=== PATIENT | female | born 1985 | race Caucasian/White ===

== ENCOUNTER 2017-01-20 20:43 | Emergency (ER) | payer OTHER ==
[~2017-01-20] VITALS: Ht 170.2 cm; Wt 111.6 kg
[~2017-01-20 20:43] MED LIST: CLOB15OI3 TP; CYCL-331 PO; DIAZ5TAB PO; HYDR-79 PO; HYDR-971 PO; HYDR15SO4 PO; HYDR453.3 TP; IBUP800T19 PO; KETO120S5 TP
[2017-01-20 21:10] VITALS: BP 142/68
--- NOTE | 2017-01-20 21:12 | ED.ADGEN ---
Past History Past Medical History: GERD Past Surgical History: No Surgical History Smoking: Cigarettes Alcohol Use: None Drug Use: None Adult General Chief Complaint Chief Complaint back pain HPI HPI Patient is a 31 y/o female that has been doing lots of gardening. now her right lumbar area is hurting radiating to RLE. no falls. no difficulty with bowel or bladder habits. no weakness, no numbness Review of Systems Review of Systems Constitutional: Denies fever or chills [] Eyes: Denies change in visual acuity, redness, or eye pain [] HENT: Denies nasal congestion or sore throat [] Respiratory: Denies cough or shortness of breath [] Cardiovascular: No additional information not addressed in HPI [] GI: Denies abdominal pain, nausea, vomiting, bloody stools or diarrhea [] : Denies dysuria or hematuria [] Musculoskeletal: back pain, no joint pain. rle pain Integument: Denies rash or skin lesions [] Neurologic: Denies headache, focal weakness or sensory changes [] Endocrine: Denies polyuria or polydipsia [] Allergies Allergies Allergies Coded Allergies Type Severity Reaction Last Updated Verified Sulfa (Sulfonamide Antibiotics) Allergy Intermediate Rash 01/27/14 Yes Physical Exam Physical Exam Constitutional: Well developed, well nourished, no acute distress, non-toxic appearance. [] HENT: Normocephalic, atraumatic, bilateral external ears normal, oropharynx moist, no oral exudates, nose normal. [] Eyes: PERRLA, EOMI, conjunctiva normal, no discharge. [] Neck: Normal range of motion, no tenderness, supple, no stridor. [] Cardiovascular:Heart rate regular rhythm, no murmur [] Lungs & Thorax: Bilateral breath sounds clear to auscultation [] Abdomen: Bowel sounds normal, soft, no tenderness, no masses, no pulsatile masses. [] Skin: Warm, dry, no erythema, no rash. [] Back:tender to palpate right paraspinous muscle of lumbar spine. tender into right buttock with radiation along lateral aspect of thigh Extremities: No tenderness, no cyanosis, no clubbing, ROM intact, no edema. nml reflexes, normal strength. pain with straight leg at 40degress Neurologic: Alert and oriented X 3, normal motor function, normal sensory function, no focal deficits noted. [] Psychologic: Affect normal, judgement normal, mood normal. [] Current Patient Data Vital Signs Vital Signs Date Time Temp Pulse Resp B/P (MAP) Pulse Ox O2 Delivery O2 Flow Rate FiO2 01/20/17 20:43 98.1 86 18 98 Room Air Lab Results Laboratory Tests Test 01/20/17 21:05 POC Urine HCG, Qualitative hcg negative (Negative) EKG EKG [] Radiology/Procedures Radiology/Procedures [] Course & Med Decision Making Course & Med Decision Making Pertinent Labs and Imaging studies reviewed. (See chart for details) pt will return if weakness, numbness, trouble with bowel or bladder. we discussed f/u with pcp to discuss rehab vs pain mgmt vs surgical referral Final Impression Final Impression back pain with radiculopathy[] Problems: Dragon Disclaimer Dragon Disclaimer This electronic medical record was generated, in whole or in part, using a voice recognition dictation system. Departure Time of Disposition: 21:14 Disposition: 01 HOME, SELF-CARE Condition: STABLE Patient Instructions: Back Pain, Adult DARNELL VELAZQUEZ MD Jan 20, 2017 21:11
== END 2017-01-20 21:15 | disposition home or self-care (01) ==
LOC: ER 20:43
DX: M54.16 Radiculopathy, lumbar region (principal); K21.9 Gastro-esophageal reflux disease without esophagitis; F17.210 Nicotine dependence, cigarettes, uncomplicated; Z88.2 Allergy status to sulfonamides
CPT/HCPCS: 81025; 99282

== ENCOUNTER 2017-04-27 18:18 | Emergency (ER) | payer OTHER ==
[~2017-04-27] VITALS: Ht 170.2 cm; Wt 100.0 kg
--- NOTE | 2017-04-27 18:26 | PHYS DOC ---
Past History Past Medical History: GERD Past Surgical History: No Surgical History Smoking: Cigarettes Alcohol Use: None Drug Use: None Adult General Chief Complaint Chief Complaint: sore throat HPI HPI He is a pleasant 31-year-old female otherwise healthy presents with a sore throat for last 2 days. Patient is on a nonproductive cough, runny nose and sick contacts home with similar symptoms. She denies any fevers, chills, change in voice, neck stiffness or swelling. Patient denies any travel outside the country or recent anabiotic use. Review of Systems Review of Systems Constitutional: Denies fever or chills [] Eyes: Denies change in visual acuity, redness, or eye pain [] HENT: Denies nasal congestion but she does complains of sore throat Respiratory: Denies cough or shortness of breath [] Cardiovascular: No additional information not addressed in HPI [] GI: Denies abdominal pain, nausea, vomiting, bloody stools or diarrhea [] : Denies dysuria or hematuria [] Musculoskeletal: Denies back pain or joint pain [] Integument: Denies rash or skin lesions [] Neurologic: Denies headache, focal weakness or sensory changes [] Endocrine: Denies polyuria or polydipsia [] Allergies Allergies Allergies Coded Allergies Type Severity Reaction Last Updated Verified Sulfa (Sulfonamide Antibiotics) Allergy Intermediate Rash 01/27/14 Yes Physical Exam Physical Exam Constitutional: Well developed, well nourished, no acute distress, non-toxic appearance. [] HENT: Normocephalic, atraumatic, bilateral external ears normal, oropharynx moist, no oral exudates, no tonsillar hypertrophy nose normal like clear rhinorrhea noted. [] Neck: Normal range of motion, no tenderness, supple, no stridor. [] Cardiovascular:Heart rate regular rhythm, no murmur [] Lungs & Thorax: Bilateral breath sounds clear to auscultation [] Neurologic: Alert and oriented X 3, normal speech EKG EKG [] Radiology/Procedures Radiology/Procedures [] Course & Med Decision Making Course & Med Decision Making Pertinent Labs and Imaging studies reviewed. (See chart for details) patient rapid strep is negative. By centor criteria she does not meet necessary requirements for empiric treatment she'll get supportive medications and oral Decadron. Is no evidence of peritonsillar abscess, retropharyngeal abscess, or other oropharynx infection, this is likely an upper respiratory tract infection. [] Dragon Disclaimer Dragon Disclaimer This chart was dictated in whole or in part using Voice Recognition software in a busy, high-work load, and often noisy Emergency Department environment. It may contain unintended and wholly unrecognized errors or omissions. Departure Departure: Impression: Primary Impression: Sore throat Disposition: 01 HOME, SELF-CARE Condition: IMPROVED Referrals: KAYLIN CONTRERAS (PCP) Patient Instructions: Sore Throat Additional Instructions: My discharge plan Follow up: In addition patient is asked to followup with their primary doctor, within a week for followup examination and to address patient's ongoing medical conditions. Because patient does not have a regular medical doctor, a local physician Resource Sheet will be provided to establish care primary care. Patient is advised that in the Emergency Department primary complaints are addressed and only in light of known signs and symptoms. Patient should return immediately to the emergency department if new signs and symptoms develop or patient's condition worsens in any way. At time of discharge patient was in stable condition and had verbalized understanding of the discharge instructions. Scripts Diphenhydramine Hcl (BENADRYL) 25 Mg Capsule 1 MG PO QID for 7 Days, CAP Prov: WHITNEY MCKINNON MD 04/27/17 Guaifenesin/Dextromethorphan (MUCINEX DM ER 1,200-60 MG TAB) 1 Each Tbmp.12hr 1 TAB PO BID, #20 TAB 1 Refill Prov: WHITNEY MCKINNON MD 04/27/17 WHITNEY MCKINNON MD Apr 27, 2017 18:26
[2017-04-27] MEDS ORDERED: GUAI1TBM10 PO (18:50)
[2017-04-27] MEDS ORDERED: DIPH25CA58 PO (18:50)
[2017-04-27] MEDS ORDERED: DEXAMETHASONE SOD PHOS 10 MG/ML VIAL PO ONE (19:00)
[2017-04-27 19:36] VITALS: BP 136/57
== END 2017-04-27 19:30 | disposition home or self-care (01) ==
LOC: ER 18:18
DX: J02.9 Acute pharyngitis, unspecified (principal); K21.9 Gastro-esophageal reflux disease without esophagitis; F17.210 Nicotine dependence, cigarettes, uncomplicated; Z88.2 Allergy status to sulfonamides
CPT/HCPCS: 87070; 87880; 99284; J1100

== ENCOUNTER 2017-05-05 18:32 | Emergency (ER) | payer OTHER ==
[~2017-05-05] VITALS: Ht 170.2 cm; Wt 100.0 kg
[~2017-05-05 18:32] MED LIST changes: +DIPH25CA58 PO; +GUAI1TBM10 PO
[2017-05-05] MEDS: METOCLOPRAMIDE HCL 10 MG/2 ML VIAL. IV ONE (18:45)
[2017-05-05] MEDS: IV NORMAL SALINE 1,000ML 1,000 ML IV ONE (18:45)
[2017-05-05] MEDS: diphenhydrAMINE 50 MG/ML VIAL IVP ONE (18:45)
[2017-05-05 18:50] VITALS: BP 142/81
--- NOTE | 2017-05-05 19:32 | PHYS DOC ---
Past History Past Medical History: Migraines Past Surgical History: No Surgical History Smoking: Cigarettes Alcohol Use: None Drug Use: None Adult General Chief Complaint Chief Complaint: HEADACHE HPI HPI 31-year-old female with a headache similar to previous headaches. She denies being . It is a mild nonradiating intermittent headache. It is not sudden in onset. She denies any numbness weakness tingling or vision changes. Review of systems is negative for chest pain shortness of breath abdominal pain. All other review of systems is negative unless otherwise noted in history of present illness. ED course: 31-year-old female with a migraine similar to previous. Patient given Reglan and Benadryl and IV fluids which improved her symptoms. Unfortunately the patient was unable to find a ride home. We asked the patient not drive home given the medications administered here in the emergency room. The patient left her keys to be picked up later tomorrow. Review of Systems Review of Systems SEE ABOVE Current Medications Current Medications Current Medications Medications (Trade) Dose Ordered Sig/Chuckie Start Time Stop Time Status Last Admin Dose Admin Diphenhydramine HCl (Benadryl) 25 mg 1X ONCE 05/05/17 18:45 05/05/17 18:48 DC 05/05/17 18:45 25 MG Metoclopramide HCl (Reglan) 10 mg 1X ONCE 05/05/17 18:45 05/05/17 18:48 DC 05/05/17 18:45 10 MG Sodium Chloride 1,000 ml @ 1,000 mls/hr 1X ONCE 05/05/17 18:45 05/05/17 19:44 05/05/17 18:45 1,000 MLS/HR Allergies Allergies Allergies Coded Allergies Type Severity Reaction Last Updated Verified Sulfa (Sulfonamide Antibiotics) Allergy Intermediate Rash 01/27/14 Yes Physical Exam Physical Exam Constitutional: Well developed, well nourished, no acute distress, non-toxic appearance. [] HENT: Normocephalic, atraumatic, bilateral external ears normal, oropharynx moist, no oral exudates, nose normal. [] Eyes: PERRLA, EOMI, conjunctiva normal, no discharge. [] Neck: Normal range of motion, no tenderness, supple, no stridor. [] Cardiovascular:Heart rate regular rhythm, no murmur [] Lungs & Thorax: Bilateral breath sounds clear to auscultation [] Abdomen: Bowel sounds normal, soft, no tenderness, no masses, no pulsatile masses. [] Skin: Warm, dry, no erythema, no rash. [] Back: No tenderness, no CVA tenderness. [] Extremities: No tenderness, no cyanosis, no clubbing, ROM intact, no edema. [] Neurologic: Mental status: Awake oriented and alert x3 Cranial nerves: Extraocular movements intact, eyebrows brittany bilaterally smile symmetric, uvula elevation, shoulder shrug intact, tongue protrusion normal DTRs: 2+ Sensation: equal and normal in all extremities Strength: 5/5 in upper and lower extremities bilaterally Psychologic: Affect normal, judgement normal, mood normal. [] Current Patient Data Vital Signs Vital Signs Date Time Temp Pulse Resp B/P (MAP) Pulse Ox O2 Delivery O2 Flow Rate FiO2 05/05/17 18:50 98.2 84 20 97 Room Air EKG EKG [] Radiology/Procedures Radiology/Procedures [] Course & Med Decision Making Course & Med Decision Making Pertinent Labs and Imaging studies reviewed. (See chart for details) [] Dragon Disclaimer Dragon Disclaimer This chart was dictated in whole or in part using Voice Recognition software in a busy, high-work load, and often noisy Emergency Department environment. It may contain unintended and wholly unrecognized errors or omissions. Departure Departure: Impression: Primary Impression: Migraine Disposition: 01 HOME, SELF-CARE Condition: STABLE Referrals: KAYLIN CONTRERAS (PCP) Patient Instructions: Migraine Headache Additional Instructions: Thank you for allowing us to participate in your care today. Followup with your primary care physician in 3 days if your symptoms do not improve. Call your Primary Doctor tomorrow and inform them of your visit today. If you do not have a primary care provider you can ask for a list of our primary care providers. Return to the emergency department you have any new or concerning findings. I recommend you follow-up with your doctor for chronic migraine medications. This should be evaluated by the primary care physician and any necessary consulting services for continued management within a few days after discharge. Return to emergency room if you have any new or concerning symptoms including but not limited to fever, chills, nausea, vomiting, intractable pain, any new rashes, chest pain, shortness of air, uncontrolled bleeding, difficulty breathing, and/or vision loss. HAILY PERSAUD MD May 05, 2017 19:32
[2017-05-05 19:48] LABS: U PREG PATIENT NEGATIVE (NEG)
== END 2017-05-05 20:00 | disposition home or self-care (01) ==
LOC: ER 18:32
DX: G43.909 Migraine, unspecified, not intractable, without status migrainosus (principal); F17.210 Nicotine dependence, cigarettes, uncomplicated; Z88.2 Allergy status to sulfonamides
CPT/HCPCS: 81025; 96361; 96374; 96375; J1200; J2765; 99284-25; J7030

== ENCOUNTER 2017-08-03 01:06 | Emergency (ER) | payer OTHER ==
[~2017-08-03] VITALS: Ht 170.2 cm; Wt 100.0 kg
[2017-08-03 01:21] VITALS: BP 151/102
[2017-08-03] MEDS ORDERED: OXYC-327 PO (01:51)
[2017-08-03] MEDS ORDERED: CLIN300C8 PO (01:51)
--- NOTE | 2017-08-03 01:54 | PHYS DOC ---
General Chief Complaint: TOOTH ACHE OR PAIN Stated Complaint: DENTAL PAIN X 3 DAYS Time Seen by MD: 01:11 Source: patient Exam Limitations: no limitations Problems: History of Present Illness Initial Comments Patient is a 32-year-old female who comes to the ED complaining of dental pain. Patient states that she developed severe cavities while years ago. She states she's had chronic issues with her teeth and that she has just found a dentist who will accept her insurance and plans to follow-up with them. She complains of severe dental pain primarily on the left upper row, she cannot localize it as nearly all of her teeth are severely decayed. She denies any headache or facial pain no fever chills or body aches no nausea or vomiting. Wxcf-duw-khtvmpm medications are not helping, she says she smoked cigarettes immediately prior to coming. She is afebrile on arrival heart rate 108 bpm and complaining of severe pain worse with eating and not relieved with current medications. Timing/Duration: gradual, other Severity: severe Location: dental Prearrival Treatment: over the counter meds, prescription meds Modifying Factors: improves with other Associated Symptoms: tooth pain Allergies: Coded Allergies: Sulfa (Sulfonamide Antibiotics) (Verified Allergy, Intermediate, Rash, ) Past Medical History Medical History: migraines Surgical History: noncontributory Social History Smoker: cigarettes Alcohol: none Drugs: none Constitutional: denies chills, denies diaphoresis, denies fever, denies malaise Eyes: denies blindness, denies foreign body sensation Ears: denies dizziness, denies pain Nose: denies congestion, denies epistaxis Mouth: see HPI Throat: denies pain, denies swelling, denies neck stiffness, denies difficulty with fluids Respiratory: denies cough, denies shortness of breath Cardiovascular: denies chest pain, denies palpitations Neurological: denies headache, denies numbness, denies paresthesia Physical Exam General Appearance: no apparent distress, obese Eyes: bilateral eye normal inspection, bilateral eye PERRL, bilateral eye EOMI Nose: normal inspection Mouth/Throat: other (severe global dental caries with many teeth eroded to the gumline, no purulence no gum swelling no bony tenderness) Neck: non-tender, supple (tender reactive lymphadenopathy bilaterally) Cardiovascular/Respiratory: normal peripheral pulses, no respiratory distress Neurologic/Psychiatric: gaggerman II-XII nml as tested, alert, oriented x 3 Orders, Labs, Meds Given the extent of her tooth decay I did offer CT evaluation and blood work. The patient states that typically antibiotics and pain medications help. I discussed signs and symptoms to monitor as well as indications for urgent return to the department. I discussed ofkz-jyb-felvuey prescription medications as well as oral hydration. Recommended smoking cessation patient expressed agreement and understanding of the treatment plan. Departure Time of Disposition: 01:51 Disposition: HOME, SELF-CARE Diagnosis: severe dental caries Condition: STABLE Patient Instructions: Dental Caries Additional Instructions: Listerine gargles 3 times daily after brushing and flossing. Aggressive hydration with Gatorade and water. Stop smoking seek medical assistance if necessary. Kyqg-zjc-cytdbjk ibuprofen for baseline discomfort. Prescription: Clindamycin, Percocet 7.5 mg quantity 20 Take joss-fqj-saieudq stool softeners and increase fluids to avoid constipation. ED staff will provide whatever literature we have regarding [facility], [facility], and [facility]. Use the resources as needed but schedule a next available dental evaluation on Saturday. Return to ED with new or changing symptoms. CARINE LUNA DO Aug 03, 2017 01:54
[2017-08-03] MEDS ORDERED: MORPHINE SULFATE 10 MG/ML SYRINGE. IM ONE (02:00)
[2017-08-03] MEDS ORDERED: CLINDAMYCIN HCL 150 MG CAPSULE PO ONE (02:00)
[2017-08-04] MEDS ORDERED: PRED20TA PO (21:43)
== END 2017-08-03 02:01 | disposition home or self-care (01) ==
LOC: ER 01:06
DX: K02.9 Dental caries, unspecified (principal); G43.909 Migraine, unspecified, not intractable, without status migrainosus; F17.210 Nicotine dependence, cigarettes, uncomplicated; Z88.2 Allergy status to sulfonamides
CPT/HCPCS: 96372; 99283; J2270

== ENCOUNTER 2017-08-04 19:04 | Emergency (ER) | payer OTHER ==
[~2017-08-04] VITALS: Ht 170.2 cm; Wt 100.0 kg
[~2017-08-04 19:04] MED LIST changes: +CLIN300C8 PO; +OXYC-327 PO
[2017-08-04 19:14] VITALS: BP 148/96
[2017-08-04] MEDS ORDERED: IV NORMAL SALINE 1,000ML 1,000 ML IV SCH (19:16)
[2017-08-04] MEDS ORDERED: PIP/TAZO PER PHARMACY MC PRN (19:30)
[2017-08-04] MEDS ORDERED: methylPREDNISolone SOD SUCC PF 125 MG/2 ML VIAL. IV ONE (20:00)
[2017-08-04] MEDS ORDERED: PIPERACILLIN/TAZOBACTAM 3.375 GM in IV NORMAL SALINE 50ML 50 ML IV ONE (20:00)
[2017-08-04 20:03] LABS: BASO # 0.1 x10^3/uL (0.0-0.2); BASO % 1 % (0-3); EOS # 0.1 x10^3/uL (0.0-0.7); EOS % 1 % (0-3); HEMATOCRIT 43.9 % (36.0-47.0); HEMOGLOBIN 15.3 g/dL (12.0-15.5); LYMPH # 2.8 x10^3/uL (1.0-4.8); LYMPH % 28 % (24-48); MEAN CORPUSCULAR HEMOGLOBIN 32 pg (25-35); MEAN CORPUSCULAR HGB CONC 35 g/dL (31-37); MEAN CORPUSCULAR VOLUME 90 fL (79-100); MONO # 0.9 x10^3/uL (0.0-1.1); MONO % 9 % (0-9); NEUT % 60 % (31-73); PLATELET COUNT 255 x10^3/uL (140-400); RED BLOOD COUNT 4.87 x10^6/uL (3.50-5.40); RED CELL DISTRIBUTION WIDTH 13.2 % (11.5-14.5)
[2017-08-04 20:06] LABS: BILIRUBIN,URINE NEG (NEG); CLARITY,URINE HAZY; COLOR,URINE AMBER; GLUCOSE,URINE 500 mg/dL (NEG)
[2017-08-04 20:07] LABS: AMORPHOUS SEDIMENT,UR PRESENT /HPF; BACTERIA,URINE 0 /HPF (0-FEW); NITRITE,URINE NEG (NEG); RBC,URINE OCC /HPF (0-2); SQUAMOUS EPITHELIAL CELL,UR MOD /LPF; UROBILINOGEN,URINE 0.2 mg/dL (0.2 mg/dL); WBC,URINE OCC /HPF (0-4)
[2017-08-04] MEDS ORDERED: IV NORMAL SALINE 50ML 50 ML ONE (20:10)
[2017-08-04] MEDS ORDERED: PIPERACILLIN/TAZOBACTAM 3.375 GM VIAL IV ONE (20:10)
[2017-08-04] MEDS ORDERED: CONTRAST GIVEN MC PRN (20:15)
[2017-08-04 20:20] LABS: ALBUMIN 3.8 g/dL (3.4-5.0); ALBUMIN/GLOBULIN RATIO 0.8 (1.0-1.7); C REACTIVE PROTEIN 155.2 mg/L (0-3.3); CALCIUM 9.3 mg/dL (8.5-10.1); CREATININE 0.6 mg/dL (0.6-1.0); GFR 115.9; POTASSIUM 3.8 mmol/L (3.5-5.1); TOTAL BILIRUBIN 0.6 mg/dL (0.2-1.0); TOTAL PROTEIN 8.5 g/dL (6.4-8.2)
[2017-08-04] MEDS ORDERED: IOHEXOL 300 MG/ML 75 ML VIAL. IV ONE (20:30)
--- NOTE | 2017-08-04 21:20 | RAD ---
PQRS Compliance Statement: One or more of the following individualized dose reduction techniques were utilized for this examination: 1. Automated exposure control 2. Adjustment of the mA and/or kV according to patient size 3. Use of iterative reconstruction technique CT MAXILLOFACIAL W/CONTRAST Clinical Indication: Severe dental caries, Left side facial pain and swelling. Comparison: None. TECHNIQUE: Helical CT imaging of the facial bones is performed after 75 cc of Omnipaque 300 IV contrast. Findings: There are dental cavities on the left involving an upper molar, 2 upper premolars, a lower premolar, and lower canine. There is left periodontal fluid collection that is incompletely formed measuring 2.8 cm AP by 1.5 cm transverse. There is probably dental cavity of an upper right molar. There is periodontal fluid collection that is poorly formed on the right measuring about 2.3 cm AP by 1.3 cm transverse. Both fluid collections are near the floor of the mouth and can be seen on image 14. There are bilateral mildly enlarged upper cervical lymph nodes that are probably reactive. There is left preorbital subcutaneous induration and swelling mild induration of the upper left cheek. Visualized brain without midline shift or mass effect. Globes are intact. Mild mucosal thickening inferiorly in the left maxillary sinus. No air-fluid level. Left ostiomeatal complex is partially opacified. IMPRESSION: 1. Left greater than right dental cavities as detailed above. 2. There are bilateral periodontal incompletely formed fluid collections suggestive of phlegmon or early abscess. 3. There is probably reactive upper cervical adenopathy. 4. Left preorbital subcutaneous induration. Correlate with physical exam. Electronically signed by: Duy Blum MD (08/04/2017 9:17 PM) [facility]
[2017-08-04 21:31] LABS: AMPHETAMINE/METHAMPHETAMINE NEG (NEG); BARBITURATES NEG (NEG); BENZODIAZEPINES NEG (NEG); CANNABINOIDS NEG (NEG); COCAINE NEG (NEG); METHADONE NEG (NEG); OPIATES POS (NEG); PHENCYCLIDINE NEG (NEG)
--- NOTE | 2017-08-04 21:41 | PHYS DOC ---
General Chief Complaint: DENTAL PROBLEM Stated Complaint: DENTAL PAIN Time Seen by MD: 19:12 Source: patient, old records Exam Limitations: no limitations Problems: History of Present Illness Initial Comments Patient is a 32-year-old female who comes to the ED complaining of worsening dental pain symptoms. Patient was seen by me 2 days ago with severe dental caries and chronic dental issues, she states that they have been ongoing for several years. She reports that they have worsened recently however has not sought any dental evaluation or treatment. 2 days ago when I saw her she was prescribed clindamycin and opiate pain medications, she reports some delay in obtaining those prescriptions. She was advised to return if her symptoms worsened and today has some mild left-sided facial swelling. Her pain complaints are stable described as moderate severe, throbbing left upper jaw. No fever chills nausea vomiting no headache neck stiffness or actual bony tenderness. On arrival she is afebrile and tachycardic however given the severity of her dental caries and with progression of symptoms despite antibacterial treatment we will rule out sepsis and osteomyelitis. The patient is agreeable to CT and lab evaluation. Patient continues to smoke cigarettes. No trouble swallowing or difficulty breathing associated with the facial swelling. Timing/Duration: other Severity: severe Location: facial, dental Prearrival Treatment: no prearrival treatment, over the counter meds Modifying Factors: improves with other Associated Symptoms: facial pain/swelling, tooth pain Allergies: Coded Allergies: Sulfa (Sulfonamide Antibiotics) (Verified Allergy, Intermediate, Rash, ) Past Medical History Medical History: other (migraines, severe dental caries, noncompliance with no dental follow-up from prior ED visits) Surgical History: noncontributory Social History Smoker: cigarettes Alcohol: none Drugs: none Constitutional: denies chills, denies diaphoresis, denies fever, denies malaise Eyes: denies blindness, denies blurred vision Ears: denies dizziness, denies pain Nose: denies clots, denies congestion, denies epistaxis Mouth: clots Throat: denies pain, denies swelling, denies neck stiffness Respiratory: denies cough, denies shortness of breath, denies wheezing Cardiovascular: denies chest pain, denies palpitations, denies syncope Gastrointestinal: denies abdominal pain, denies nausea, denies vomiting Musculoskeletal: denies back pain, denies joint swelling, denies neck pain Neurological: denies headache, denies numbness, denies paresthesia Physical Exam General Appearance: moderate distress, obese Eyes: bilateral eye normal inspection, bilateral eye PERRL, bilateral eye EOMI Ears: bilateral ear auricle normal, bilateral ear canal normal, bilateral ear TM normal Nose: normal inspection Mouth/Throat: other (mild left-sided facial swelling, persistent severe primarily left upper dental caries with some mild gingival swelling no palpable bony deformity no bony tenderness or purulence) Neck: full range of motion, supple, lymphadenopathy (L) Cardiovascular/Respiratory: normal peripheral pulses, normal breath sounds 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 PHYSICIAN: CARINE LUNA DO REASON: severe dental caries, L facial swelling PROCEDURE: CT MAXILLOFACIAL W/CONTRAST PQRS Compliance Statement: One or more of the following individualized dose reduction techniques were utilized for this examination: 1. Automated exposure control 2. Adjustment of the mA and/or kV according to patient size 3. Use of iterative reconstruction technique CT MAXILLOFACIAL W/CONTRAST Clinical Indication: Severe dental caries, Left side facial pain and swelling. Comparison: None. TECHNIQUE: Helical CT imaging of the facial bones is performed after 75 cc of Omnipaque 300 IV contrast. Findings: There are dental cavities on the left involving an upper molar, 2 upper premolars, a lower premolar, and lower canine. There is left periodontal fluid collection that is incompletely formed measuring 2.8 cm AP by 1.5 cm transverse. There is probably dental cavity of an upper right molar. There is periodontal fluid collection that is poorly formed on the right measuring about 2.3 cm AP by 1.3 cm transverse. Both fluid collections are near the floor of the mouth and can be seen on image 14. There are bilateral mildly enlarged upper cervical lymph nodes that are probably reactive. There is left preorbital subcutaneous induration and swelling mild induration of the upper left cheek. Visualized brain without midline shift or mass effect. Globes are intact. Mild mucosal thickening inferiorly in the left maxillary sinus. No air-fluid level. Left ostiomeatal complex is partially opacified. IMPRESSION: 1. Left greater than right dental cavities as detailed above. 2. There are bilateral periodontal incompletely formed fluid collections suggestive of phlegmon or early abscess. 3. There is probably reactive upper cervical adenopathy. 4. Left preorbital subcutaneous induration. Correlate with physical exam. Electronically signed by: Duy Blum MD (08/04/2017 9:17 PM) [facility] DICTATED AND SIGNED BY: DUY BLUM MD DATE: 08/04/172106 CC: KAYLIN CONTRERAS; CARINE LUNA DO ~ CBC is normal, sodium 133, CRP is 155.2 2138: I rechecked the patient she reports that she's feeling much better. She says her facial swelling has resolved and is pain free with the Solu-Medrol. I discussed lab and imaging findings, no emergent indication to hospitalize the patient over [place] at this time per her request and my observation. I discussed signs and symptoms to monitor as well as indications for urgent return to the department. Discussed aggressive hydration dztc-[id number] prescription medications and the absolute necessity for immediate dental evaluation. I discussed smoking cessation her questions were answered to her satisfaction and she expressed agreement and understanding of treatment plan. Departure Time of Disposition: 21:40 Disposition: 01 HOME, SELF-CARE Diagnosis: Severe dental caries with facial cellulitis Condition: IMPROVED Patient Instructions: Dental Caries Additional Instructions: Listerine gargles 3 times daily after brushing and flossing. Aggressive hydration with Gatorade and water. Stop smoking seek medical assistance if necessary. Cnvf-nfq-xndbjfo ibuprofen for baseline discomfort. Continue current meds. Prescription: Prednisone Take mkeq-atl-tllsgeg stool softeners and increase fluids to avoid constipation. ED staff will provide whatever literature we have [facility], [facility] dental [facility], and [facility]. Use the resources as needed but schedule a next available dental evaluation on Saturday. Return to ED with new or changing symptoms. CARINE LUNA DO Aug 04, 2017 21:40
[2017-08-04] MEDS ORDERED: PRED20TA PO (21:43)
[2017-08-04] MEDS ORDERED: predniSONE 20 MG TABLET PO ONE (22:00)
== END 2017-08-04 21:56 | disposition home or self-care (01) ==
LOC: ER 19:04
DX: K02.9 Dental caries, unspecified (principal); L03.211 Cellulitis of face; G43.909 Migraine, unspecified, not intractable, without status migrainosus; Z91.14 Patient's other noncompliance with medication regimen; F17.210 Nicotine dependence, cigarettes, uncomplicated; Z88.2 Allergy status to sulfonamides
CPT/HCPCS: 36415; 70487; 80053; 80307; 81001; 81025; 82550; 83605; 85025; 86140; 87040; 96365; 96366; 96375; 99285; J2543; J2930; J7512; Q9967; G0479; J7030

== ENCOUNTER 2020-07-01 17:43 | Emergency (ER) | payer OTHER ==
[~2020-07-01] VITALS: Ht 167.6 cm; Wt 87.7 kg
[~2020-07-01 17:43] MED LIST changes: +HYDR-1179 PO; +HYDR-3165 PO; -HYDR-79 PO; -HYDR-971 PO; -HYDR15SO4 PO; +HYDR15SO6 PO; -OXYC-327 PO; +OXYC1TAB19 PO; +PRED20TA PO
[2020-07-01 17:55] VITALS: BP 146/99
[2020-07-01 18:39] LABS: BASO % 0 % (0-3); EOS % 0 % (0-3); HEMATOCRIT 45.9 % (36.0-47.0); HEMOGLOBIN 15.5 g/dL (12.0-15.5); LYMPH # 2.6 x10^3/uL (1.0-4.8); LYMPH % 28 % (24-48); MEAN CORPUSCULAR HEMOGLOBIN 31 pg (25-35); MEAN CORPUSCULAR HGB CONC 34 g/dL (31-37); MEAN CORPUSCULAR VOLUME 92 fL (79-100); MONO # 0.4 x10^3/uL (0.0-1.1); MONO % 5 % (0-9); NEUT # 6.5 x10^3uL (1.8-7.7); NEUT % 67 % (31-73); PLATELET COUNT 273 x10^3/uL (140-400); RED BLOOD COUNT 5.02 x10^6/uL (3.50-5.40); RED CELL DISTRIBUTION WIDTH 13.8 % (11.5-14.5); WHITE BLOOD COUNT 9.6 x10^3/uL (4.0-11.0)
--- NOTE | 2020-07-01 18:55 | PHYS DOC ---
Past History Past Medical History: Diabetes, Migraines (INES LLOYD APRN) Past Surgical History: No Surgical History (INES LLOYD APRN) Smoking: Cigarettes Alcohol Use: None Drug Use: None (INES LLOYD APRN) General Adult EDM: Chief Complaint: VAGINAL BLEEDING HPI: HPI: Patient is a 35-year-old female who presents to the emergency department today with complaints of vaginal spotting that began today. Patient states earlier this week she was seen at a clinic and diagnosed with . She reports her last menstrual cycle was on May 202019. She is unsure when her due date is. Patient is 2, para 1, she has not established care yet. Patient denies any abdominal pain, nausea, vomiting, diarrhea, dysuria, hematuria, difficulty voiding, fever, cough, or shortness of breath. She denies any irregular vaginal discharge prior to the onset of the bleeding, or any irregular vaginal odor. She states she has some low back pain but that is chronic and she denies any change in her pain. Patient reports that she has had some increased urinary frequency but denies urgency. She currently denies any pain. (INES LLOYD APRN) Review of Systems: Review of Systems: Complete ROS is negative unless otherwise noted in HPI. (INES LLOYD APRN) Allergies: Allergies: Allergies Coded Allergies Type Severity Reaction Last Updated Verified Sulfa (Sulfonamide Antibiotics) Allergy Intermediate Rash 01/27/14 Yes (INES LLOYD APRN) Physical Exam: PE: See Above Constitutional: Well developed, well nourished, no acute distress, non-toxic appearance. [] HENT: Normocephalic, atraumatic, bilateral external ears normal, nose normal. [] Eyes: PERRLA, EOMI, conjunctiva normal, no discharge. [] Neck: Normal range of motion, no stridor. [] Cardiovascular:Heart rate regular rhythm Lungs & Thorax: Respirations even and unlabored, no retractions, no respiratory distress Abdomen: soft, no tenderness Skin: Warm, dry, no erythema, no rash. [] Extremities: No cyanosis, ROM intact, no edema. [] Neurologic: Alert and oriented X 3, no focal deficits noted. [] Psychologic: Affect normal, judgement normal, mood normal. [] (INES LLOYD APRN) Current Patient Data: Labs: Laboratory Tests Test 07/01/20 18:20 07/01/20 18:29 White Blood Count 9.6 x10^3/uL (4.0-11.0) Red Blood Count 5.02 x10^6/uL (3.50-5.40) Hemoglobin 15.5 g/dL (12.0-15.5) Hematocrit 45.9 % (36.0-47.0) Mean Corpuscular Volume 92 fL (79-100) Mean Corpuscular Hemoglobin 31 pg (25-35) Mean Corpuscular Hemoglobin Concent 34 g/dL (31-37) Red Cell Distribution Width 13.8 % (11.5-14.5) Platelet Count 273 x10^3/uL (140-400) Neutrophils (%) (Auto) 67 % (31-73) Lymphocytes (%) (Auto) 28 % (24-48) Monocytes (%) (Auto) 5 % (0-9) Eosinophils (%) (Auto) 0 % (0-3) Basophils (%) (Auto) 0 % (0-3) Neutrophils # (Auto) 6.5 x10^3uL (1.8-7.7) Lymphocytes # (Auto) 2.6 x10^3/uL (1.0-4.8) Monocytes # (Auto) 0.4 x10^3/uL (0.0-1.1) Eosinophils # (Auto) 0.0 x10^3/uL (0.0-0.7) Basophils # (Auto) 0.0 x10^3/uL (0.0-0.2) POC Urine HCG, Qualitative hcg positive (Negative) Vital Signs: Vital Signs Date Time Temp Pulse Resp B/P (MAP) Pulse Ox O2 Delivery O2 Flow Rate FiO2 07/01/20 17:55 98.6 110 18 146/99 (115) 97 Room Air (INES LLOYD APRN) EKG: EKG: [] (INES LLOYD APRN) Radiology/Procedures: Radiology/Procedures: PROCEDURE: OB <14 WKS W/TV Obstetric ultrasound less than 14 weeks HISTORY: female with positive hCG test. Vaginal bleeding. FINDINGS: Transabdominal sonography demonstrates anteverted appearing uterus. No gestational sac evident. Limited visualization of the ovary transabdominal. Transvaginal imaging demonstrates miniscule volume of fluid at cul-de-sac as well as an adjacent bowel loop. Anteverted uterus. Uterus measures 9.8 x 6.3 x 4.5 cm. At the uterine fundus there is a small gestational sac with a mean gestational sac diameter of 5 mm estimating a sonographic gestational age of 5 weeks 2 days and date of delivery March 01, 2021. This is concordant with the clinical gestational age of 5 weeks 6 days. No mediastinal or yolk sac evident. No subchorionic hemorrhage. Right ovary measures 2.8 x 1.5 x 1.6 cm. Left ovary measures 3.6 x 2.0 x 1.9 cm and demonstrates a thick walled cyst with peripheral hypervascularity typical of a pars luteum measuring 2.1 x 1.3 x 1.8 cm. Small volume of free fluid at the right adnexa. IMPRESSION: Single intrauterine gestational sac estimating sonographic gestational age of 5 weeks 2 days. No pole is evident at this time. There is a 2 cm peripherally hypervascular thick walled cyst of the left ovary most typical of a corpus luteum. Clinical and ultrasound follow-up in one week is advised to document eventual development of a fetus. Electronically signed by: Johnny Hart MD (07/01/2020 7:44 PM) [facility] [] (INES LLOYD APRN) Heart Score: Risk Factors: Risk Factors: DM, Current or recent (<one month) smoker, HTN, HLP, family history of CAD, obesity. Risk Scores: Score 0 - 3: 2.5% MACE over next 6 weeks - Discharge Home Score 4 - 6: 20.3% MACE over next 6 weeks - Admit for Clinical Observation Score 7 - 10: 72.7% MACE over next 6 weeks - Early Invasive Strategies (INES LLOYD APRN) Course & Med Decision Making: Course & Med Decision Making Pertinent Labs and Imaging studies reviewed. (See chart for details) 35-year-old female presents emergency room with vaginal bleeding during early . Patient's blood type is a positive, her hCG level is 1009 B2, patient CBC is unremarkable, UA is not concerning for urinary tract infection. Ultrasound was performed ultrasound revealed a gestational sac with no pole measuring 5 weeks and 2 days, this could be due to early recommend follow-up in 1 week for repeat ultrasound and hCG level. I advised the patient of possible miscarriage and need for repeat blood draw and ultrasound. I encouraged her to call her DISPERSION MIXER first thing Saturday morning to arrange follow-up. Advised the patient to practice pelvic rest until she has been cleared by [facility]. Return to the emergency room if symptoms worsen or fever develops. Patient verbalized an understanding of home care, medications, follow-up, and return to ED instructions and was in agreement with the plan of care. [] (INES LLOYD APRN) Course & Med Decision Making I have reviewed the BRICK CARRIER's note and plan of care. I was available for consultation as needed during the patient's visit in the emergency department. I agree with the clinical impression, plan, and disposition. (SONNY DUMONT DO) Dragon Disclaimer: Dragon Disclaimer: This electronic medical record was generated, in whole or in part, using a voice recognition dictation system. (INES LLOYD APRN) Departure Departure: Impression: Primary Impression: Vaginal bleeding affecting early Additional Impression: Threatened miscarriage in early Disposition: 01 DC HOME SELF CARE/HOMELESS Condition: STABLE Referrals: KAYLIN CONTRERAS MD (PCP) Patient Instructions: Threatened Miscarriage, [id number], Vaginal Bleeding During , First Trimester Additional Instructions: Follow-up with your DISPERSION MIXER next week for repeat hCG level and a repeat ultrasound. Today your hCG level was 1092, there was a gestational sac present on the ultrasound that measured 5 weeks and 2 days. Pelvic rest until you have been cleared by your DISPERSION MIXER. Return to the emergency room if symptoms worsen or fever develops. INES LLOYD APRN Jul 01, 2020 18:55 SONNY DUMONT DO Jul 02, 2020 18:45
[2020-07-01 19:03] LABS: BACTERIA,URINE 0 /HPF (0-FEW); BILIRUBIN,URINE NEG (NEG); CLARITY,URINE CLEAR; COLOR,URINE YELLOW; GLUCOSE,URINE >=1000 mg/dL (NEG); NITRITE,URINE NEG (NEG); RBC,URINE 0 /HPF (0-2); SQUAMOUS EPITHELIAL CELL,UR FEW /LPF; UROBILINOGEN,URINE 0.2 mg/dL (0.2 mg/dL)
--- NOTE | 2020-07-01 19:47 | RAD ---
Obstetric ultrasound less than 14 weeks HISTORY: female with positive hCG test. Vaginal bleeding. FINDINGS: Transabdominal sonography demonstrates anteverted appearing uterus. No gestational sac evident. Limited visualization of the ovary transabdominal. Transvaginal imaging demonstrates miniscule volume of fluid at cul-de-sac as well as an adjacent bowel loop. Anteverted uterus. Uterus measures 9.8 x 6.3 x 4.5 cm. At the uterine fundus there is a small gestational sac with a mean gestational sac diameter of 5 mm estimating a sonographic gestational age of 5 weeks 2 days and date of delivery March 01, 2021. This is concordant with the clinical gestational age of 5 weeks 6 days. No mediastinal or yolk sac evident. No subchorionic hemorrhage. Right ovary measures 2.8 x 1.5 x 1.6 cm. Left ovary measures 3.6 x 2.0 x 1.9 cm and demonstrates a thick walled cyst with peripheral hypervascularity typical of a pars luteum measuring 2.1 x 1.3 x 1.8 cm. Small volume of free fluid at the right adnexa. IMPRESSION: Single intrauterine gestational sac estimating sonographic gestational age of 5 weeks 2 days. No pole is evident at this time. There is a 2 cm peripherally hypervascular thick walled cyst of the left ovary most typical of a corpus luteum. Clinical and ultrasound follow-up in one week is advised to document eventual development of a fetus. Electronically signed by: Johnny Hart MD (07/01/2020 7:44 PM) [facility]
== END 2020-07-01 20:30 | disposition home or self-care (01) ==
LOC: ER 17:43
DX: O20.0 Threatened abortion (principal); O24.911 Unspecified diabetes mellitus in pregnancy, first trimester; G43.909 Migraine, unspecified, not intractable, without status migrainosus; O99.331 Smoking (tobacco) complicating pregnancy, first trimester; Z3A.01 Less than 8 weeks gestation of pregnancy; Z88.2 Allergy status to sulfonamides
CPT/HCPCS: 36415; 76801; 76817; 81001; 81025; 84702; 85025; 86900; 86901; 99284-25

== ENCOUNTER → 2020-07-06 | Outpatient (CLI) | payer OTHER ==
[2020-07-01 17:55] VITALS: BP 146/99
--- NOTE | 2020-07-06 15:24 | RAD ---
PREG 1ST TRIMESTER Clinical Indication: Reason: VAG BLEEDING IN . Patient is no longer bleeding./ Comparison: Obstetric ultrasound, 5 days ago. TECHNIQUE: Real-time ultrasound imaging of the pelvis using transabdominal and transvaginal window is performed. Findings: Uterus is anteverted measuring 8.8 x 6.7 x 5.1 cm. No abnormality of the myometrium. Adjacent to the endometrium there is a intrauterine gestational sac. Contour is smooth, no perigestational hemorrhage is seen. The gestational sac measures 0.8 cm, 5 weeks and 4 days. In the gestational sac a yolk sac is seen. A pole is not identified. EDC ultrasound is March 04, 2021. The maternal ovaries demonstrate normal arterial blood flow and are similar in size. Small follicle of the left ovary is noted. No cul-de-sac free fluid is identified. No evidence of adnexal mass. IMPRESSION: Intrauterine gestational sac is redemonstrated. Internally a yolk sac is now identified. A pole is not seen. Estimated sonographic gestational age is 5 weeks and 4 days. Suggest serial quantitative beta hCG. Electronically signed by: Duy Blum MD (07/06/2020 3:21 PM) [facility]
== END ==
LOC: US 09:09
PROVIDERS: ATTEND Family Medicine
DX: O46.91 Antepartum hemorrhage, unspecified, first trimester (principal); Z3A.01 Less than 8 weeks gestation of pregnancy
CPT/HCPCS: 76801

== ENCOUNTER 2020-10-16 03:42 | Emergency (ER) | payer OTHER ==
[~2020-10-16] VITALS: Ht 167.6 cm; Wt 92.0 kg
[~2020-10-16 03:42] MED LIST changes: -CLIN300C8 PO; +CLIN300C9 PO
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
[2020-10-16] MEDS ORDERED: IV RINGERS SOLUTION,LACTATED 1,000 ML IV ONE ×2 (04:45→06:15)
--- NOTE | 2020-10-16 05:00 | EKG ---
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
[2020-10-16 05:19] LABS: ALBUMIN 3.7 g/dL (3.4-5.0); ALBUMIN/GLOBULIN RATIO 0.9 (1.0-1.7); CALCIUM 9.1 mg/dL (8.5-10.1); TOTAL PROTEIN 7.6 g/dL (6.4-8.2)
[2020-10-16 05:20] LABS: CREATININE 0.7 mg/dL (0.6-1.0); GFR 95.2; POTASSIUM 3.5 mmol/L (3.5-5.1); TOTAL BILIRUBIN 0.3 mg/dL (0.2-1.0)
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
[2020-10-16 05:52] LABS: BASO % 0 % (0-3); EOS % 0 % (0-3); LYMPH # 1.5 x10^3/uL (1.0-4.8); LYMPH % 8 % (24-48); MEAN CORPUSCULAR HEMOGLOBIN 31 pg (25-35); MEAN CORPUSCULAR HGB CONC 33 g/dL (31-37); MEAN CORPUSCULAR VOLUME 93 fL (79-100); MONO # 0.8 x10^3/uL (0.0-1.1); MONO % 4 % (0-9); NEUT # 17.6 x10^3uL (1.8-7.7); NEUT % 88 % (31-73); PLATELET COUNT 286 x10^3/uL (140-400); RED BLOOD COUNT 5.15 x10^6/uL (3.50-5.40)
[2020-10-16] MEDS ORDERED: INSULIN REGULAR VIAL 100 UNIT in IV NORMAL SALINE 100ML 100 ML IV PRN (06:00)
[2020-10-16] MEDS ORDERED: IV NORMAL SALINE 100ML 100 ML ONE (06:01)
[2020-10-16 06:13] VITALS: BP 103/70
[2020-10-16 06:13] LABS: % ATYL 1 % (0-0); % BANDS 3 % (0-9); % LYMPHS 12 % (24-48); % MONOS 2 % (0-10); % SEGS 82 % (35-66); PLT ESTIMATE ADEQUATE (ADEQUATE)
[2020-10-16] MEDS ORDERED: METOCLOPRAMIDE HCL 10 MG/2 ML VIAL. IVP PRN (06:15)
[2020-10-16] MEDS ORDERED: ONDANSETRON PF 4 MG/2 ML VIAL. IVP PRN (06:15)
[2020-10-16] MEDS ORDERED: diphenhydrAMINE 50 MG/ML VIAL IVP PRN (06:15)
[2020-10-16] MEDS ORDERED: diphenhydrAMINE HCL 25 MG CAPSULE PO PRN (06:15)
[2020-10-16] MEDS ORDERED: PROCHLORPERAZINE 10 MG/2 ML VIAL. IVP PRN (06:15)
[2020-10-16] MEDS ORDERED: POTASSIUM CHLORIDE 10MEQ 100 ML IV PRN (06:30)
[2020-10-16] MEDS ORDERED: IOHEXOL 300 MG/ML 75 ML VIAL. IV ONE (06:45)
[2020-10-16] MEDS ORDERED: CONTRAST GIVEN. MC PRN (06:45)
[2020-10-16 06:48] LABS: BARBITURATES NEG (NEG); BENZODIAZEPINES NEG (NEG); CANNABINOIDS NEG (NEG); COCAINE NEG (NEG); METHADONE NEG (NEG); OPIATES NEG (NEG); PHENCYCLIDINE NEG (NEG)
[2020-10-16 06:49] LABS: AMPHETAMINE/METHAMPHETAMINE NEG (NEG)
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
[2020-10-16 08:16] LABS: CALCIUM 8.1 mg/dL (8.5-10.1); CREATININE 0.5 mg/dL (0.6-1.0); GFR 140.4; POTASSIUM 3.6 mmol/L (3.5-5.1)
== END 2020-10-16 07:43 | disposition left against medical advice (07) ==
LOC: ER 03:42 → UNDOADMIN 06:35 → ICU 06:35
DX: S05.12XA Contusion of eyeball and orbital tissues, left eye, initial encounter (principal); M25.522 Pain in left elbow; M54.2 Cervicalgia; M25.511 Pain in right shoulder; R07.2 Precordial pain; E11.10 Type 2 diabetes mellitus with ketoacidosis without coma; F10.129 Alcohol abuse with intoxication, unspecified; G43.909 Migraine, unspecified, not intractable, without status migrainosus; F17.210 Nicotine dependence, cigarettes, uncomplicated; Z88.2 Allergy status to sulfonamides; Y90.5 Blood alcohol level of 100-119 mg/100 ml; V43.52XA Car driver injured in collision with other type car in traffic accident, initial encounter; Y93.I9 Activity, other involving external motion; Y92.488 Other paved roadways as the place of occurrence of the external cause; Y99.8 Other external cause status
CPT/HCPCS: 36415; 70450; 70486; 71045; 71260; 72125; 73030; 73080; 74177; 80048; 80053; 80307; 82010; 82803; 82947; 84100; 84702; 85007; 85025; 93005; 96361; 96372; 96374; 99285; G0480; J1815; J3010; J7120; Q9967

== ENCOUNTER → 2020-11-02 | Outpatient (CLI) | payer OTHER ==
[2020-10-16 06:13] VITALS: BP 103/70
--- NOTE | 2020-11-02 12:30 | RAD ---
3 views of the left foot without comparison for left foot and ankle pain. FINDINGS: There is no fracture, dislocation, or acute osseous abnormality identified. Joints and soft tissues are grossly unremarkable. No significant degenerative changes. IMPRESSION: 1. No acute osseous abnormality. Electronically signed by: Drew Giordano MD (11/02/2020 12:28 PM) [id number]
--- NOTE | 2020-11-02 12:31 | RAD ---
3 views of the left ankle without comparison for left foot and ankle pain. FINDINGS: No fracture or acute osseous abnormality. Joints and soft tissues are grossly unremarkable. Ankle mortise is symmetric. IMPRESSION: 1. No acute osseous abnormality. Electronically signed by: Drew Giordano MD (11/02/2020 12:28 PM) [id number]
== END ==
LOC: RAD 11:39
PROVIDERS: ATTEND Family Medicine
DX: M25.572 Pain in left ankle and joints of left foot (principal); M79.672 Pain in left foot
CPT/HCPCS: 73610; 73630

== ENCOUNTER 2021-08-04 08:31 | Emergency (ER) | payer OTHER ==
[~2021-08-04] VITALS: Ht 167.6 cm; Wt 92.0 kg
[~2021-08-04 08:31] MED LIST changes: +CLIN-95 PO; -CLIN300C9 PO; -CYCL-331 PO; +CYCL10TA19 PO
[2021-08-04 09:15] LABS: BASO # 0.1 x10^3/uL (0.0-0.2); BASO % 0 % (0-3); EOS % 0 % (0-3); HEMATOCRIT 57.2 % (36.0-47.0); HEMOGLOBIN 18.5 g/dL (12.0-15.5); LYMPH # 1.3 x10^3/uL (1.0-4.8); LYMPH % 10 % (24-48); MEAN CORPUSCULAR HEMOGLOBIN 32 pg (25-35); MEAN CORPUSCULAR HGB CONC 32 g/dL (31-37); MEAN CORPUSCULAR VOLUME 99 fL (79-100); MONO # 0.3 x10^3/uL (0.0-1.1); MONO % 2 % (0-9); NEUT # 12.1 x10^3uL (1.8-7.7); NEUT % 88 % (31-73); PLATELET COUNT 446 x10^3/uL (140-400); RED CELL DISTRIBUTION WIDTH 13.5 % (11.5-14.5); WHITE BLOOD COUNT 13.8 x10^3/uL (4.0-11.0)
[2021-08-04] MEDS ORDERED: IV NORMAL SALINE 1,000ML 1,000 ML IV ONE ×2 (09:30)
[2021-08-04] MEDS ORDERED: ONDANSETRON PF 4 MG/2 ML VIAL. IVP ONE (09:30)
[2021-08-04 09:35] LABS: ALBUMIN 4.7 g/dL (3.4-5.0); ALBUMIN/GLOBULIN RATIO 0.9 (1.0-1.7); CALCIUM 9.6 mg/dL (8.5-10.1); CREATININE 1.6 mg/dL (0.6-1.0); GFR 36.5; MAGNESIUM 2.4 mg/dL (1.8-2.4); PHOSPHORUS 8.1 mg/dL (2.6-4.7); POTASSIUM 5.6 mmol/L (3.5-5.1); TOTAL BILIRUBIN 0.7 mg/dL (0.2-1.0); TOTAL PROTEIN 9.9 g/dL (6.4-8.2)
--- NOTE | 2021-08-04 09:41 | PHYS DOC ---
Past History Past Medical History: Diabetes, Hypertension, Migraines (MARKY REED MD) Past Surgical History: No Surgical History (MARKY REED MD) Smoking: Cigarettes Alcohol Use: Occasionally Drug Use: None (MARKY REED MD) General Adult EDM: Chief Complaint: NAUSEA/VOMITING/DIARRHEA HPI: HPI: Patient is a 36-year-old female coming in for abdominal pain and p.o. intolerance the past 3 days. Patient is a history of type 2 diabetes but has not been able to take her insulin for the past few days her been checking her blood sugar because she has not been able tolerate p.o. (MARKY REED MD) Review of Systems: Review of Systems: All other systems within normal limits except for as noted in the HPI (MARKY REED MD) Current Medications: Current Meds: Current Medications Medications (Trade) Dose Ordered Sig/Chuckie Start Time Stop Time Status Last Admin Dose Admin Ondansetron HCl (Zofran) 4 mg 1X ONCE 08/04/21 09:30 08/04/21 09:31 DC 08/04/21 09:28 4 MG Sodium Chloride 1,000 ml @ 1,000 mls/hr 1X ONCE 08/04/21 09:30 08/04/21 10:29 (MARKY REED MD) Allergies: Allergies: Allergies Coded Allergies Type Severity Reaction Last Updated Verified Sulfa (Sulfonamide Antibiotics) Allergy Intermediate Rash 01/27/14 Yes (MARKY REED MD) Physical Exam: PE: Constitutional: Well developed, well nourished, no acute distress, non-toxic appearance. [] HENT: Normocephalic, atraumatic, bilateral external ears normal, nose normal. [] Eyes: PERRLA, conjunctiva normal, no discharge. [] Neck: No rigidity, supple, no stridor. [] Cardiovascular: Tachycardic, regular rhythm, brisk cap refill [] Lungs & Thorax: Non labored symmetric respirations, no tachypnea or respiratory distress [] Abdomen: Soft, nondistended, generalized tenderness . Skin: Warm, dry, no erythema, no rash. [] Back: Unremarkable Extremities: No deformities, range of motion grossly intact, no lower extremity edema [] Neurologic: Alert and oriented X 3, no focal deficits noted. [] Psychologic: Affect normal, judgement normal, mood normal. [] (MARKY REED MD) Current Patient Data: Labs: Laboratory Tests Test 08/04/21 08:50 White Blood Count 13.8 x10^3/uL (4.0-11.0) H Red Blood Count 5.80 x10^6/uL (3.50-5.40) H Hemoglobin 18.5 g/dL (12.0-15.5) H Hematocrit 57.2 % (36.0-47.0) H Mean Corpuscular Volume 99 fL (79-100) Mean Corpuscular Hemoglobin 32 pg (25-35) Mean Corpuscular Hemoglobin Concent 32 g/dL (31-37) Red Cell Distribution Width 13.5 % (11.5-14.5) Platelet Count 446 x10^3/uL (140-400) H Neutrophils (%) (Auto) 88 % (31-73) H Lymphocytes (%) (Auto) 10 % (24-48) L Monocytes (%) (Auto) 2 % (0-9) Eosinophils (%) (Auto) 0 % (0-3) Basophils (%) (Auto) 0 % (0-3) Neutrophils # (Auto) 12.1 x10^3uL (1.8-7.7) H Lymphocytes # (Auto) 1.3 x10^3/uL (1.0-4.8) Monocytes # (Auto) 0.3 x10^3/uL (0.0-1.1) Eosinophils # (Auto) 0.0 x10^3/uL (0.0-0.7) Basophils # (Auto) 0.1 x10^3/uL (0.0-0.2) Vital Signs: Vital Signs Date Time Temp Pulse Resp B/P (MAP) Pulse Ox O2 Delivery O2 Flow Rate FiO2 08/04/21 08:41 97.9 121 26 145/96 (112) 99 Room Air (MARKY REED MD) EKG: EKG: [] (MARKY REED MD) Radiology/Procedures: Radiology/Procedures: [] (MARKY REED MD) Heart Score: C/O Chest Pain: No Risk Factors: Risk Factors: DM, Current or recent (<one month) smoker, HTN, HLP, family history of CAD, obesity. Risk Scores: Score 0 - 3: 2.5% MACE over next 6 weeks - Discharge Home Score 4 - 6: 20.3% MACE over next 6 weeks - Admit for Clinical Observation Score 7 - 10: 72.7% MACE over next 6 weeks - Early Invasive Strategies (MARKY REED MD) Course & Med Decision Making: Course & Med Decision Making Pertinent Labs and Imaging studies reviewed. (See chart for details) Insulin drip started for DKA and admitted to the hospitalist. [] (MARKY REED MD) Course & Med Decision Making See Dr. Reed s and Dr. Wolfe notes prior shift change. Endorsed to Dr. Dumont at shift change. Critical Care- 60 min. Insulin and fluid management. Impression: 1. DKA 2. DM 3. Leukocytosis 13.8 4. Dehydration 5. Nausea and Vomiting (CRISTOBAL ARCHIBALD MD) Course & Med Decision Making Comprehensive signout given from off going physician Patient admitted to hospitalist who has been managing her DKA but I monitored patient's status and wellbeing and reviewed entirety of ER work-up and intervention so far as patient was physically housed in ER off-site from main hospital I personally saw patient repeating aspects of history and physical exam, appears anion gap closed and she is tolerating p.o. intake with adequate blood sugars after insulin drip stopped and daily Lantus administered. Hospitalist contacted for him to come evaluate patient, it was ultimately decided that patient was fit for discharge (SONNY DUMONT DO) Dragon Disclaimer: Dragon Disclaimer: This electronic medical record was generated, in whole or in part, using a voice recognition dictation system. (MARKY REED MD) Departure Departure: Impression: Primary Impression: DKA (diabetic ketoacidoses) Disposition: ADMITTED INPATIENT Admitting Physician: Kaylin Wolfe (MARKY REED MD) Admitting Physician: Kaylin Wolfe (SONNY DUMONT DO) Condition: STABLE Referrals: KAYLIN CONTRERAS MD (PCP) MARKY REED MD Aug 04, 2021 09:41 CRISTOBAL ARCHIBALD MD Aug 05, 2021 06:37 SONNY DUMONT DO Aug 05, 2021 14:14
[2021-08-04] MEDS ORDERED: ACETAMINOPHEN 500 MG TABLET PO ONE (09:45)
[2021-08-04] MEDS ORDERED: POTASSIUM CHLORIDE 10MEQ 100 ML IV PRN ×2 (09:45)
[2021-08-04] MEDS ORDERED: INSULIN REGULAR VIAL 100 UNIT in IV NORMAL SALINE 100ML 100 ML IV PRN (09:45)
[2021-08-04] MEDS ORDERED: MAGNESIUM SULFATE 2GM 50 ML IV PRN (09:45)
[2021-08-04] MEDS ORDERED: IV DEXTROSE 5 %-0.45 % NACL 1,000 ML IV SCH (09:45)
[2021-08-04] MEDS ORDERED: METOCLOPRAMIDE HCL 10 MG/2 ML VIAL. IVP ONE (09:45)
[2021-08-04] MEDS ORDERED: IV NORMAL SALINE 1,000ML 1,000 ML IV SCH (09:45)
[2021-08-04 10:49] LABS: BARBITURATES NEG (NEG); BENZODIAZEPINES NEG (NEG); CANNABINOIDS NEG (NEG); COCAINE NEG (NEG); METHADONE NEG (NEG); OPIATES NEG (NEG); PHENCYCLIDINE NEG (NEG)
[2021-08-04 10:59] LABS: BACTERIA,URINE 0 /HPF (0-FEW); BILIRUBIN,URINE SMALL (NEG); CLARITY,URINE CLEAR; COLOR,URINE YELLOW; GLUCOSE,URINE 500 mg/dL (NEG); NITRITE,URINE NEG (NEG); RBC,URINE RARE /HPF (0-2); SQUAMOUS EPITHELIAL CELL,UR FEW /LPF; UROBILINOGEN,URINE 0.2 mg/dL (0.2 mg/dL); WBC,URINE 0 /HPF (0-4)
[2021-08-04 11:00] LABS: HYALINE CASTS, URINE OCC /HPF; YEAST,URINE PRESENT /HPF
[2021-08-04 11:09] LABS: AMPHETAMINE/METHAMPHETAMINE NEG (NEG)
[2021-08-04] MEDS ORDERED: ACETAMINOPHEN 325 MG TABLET PO PRN (11:45)
[2021-08-04] MEDS ORDERED: ONDANSETRON PF 4 MG/2 ML VIAL. IVP PRN (11:45)
--- NOTE | 2021-08-04 11:50 | HP ---
DATE OF SERVICE: 08/04/2021 ADMIT DATE: 08/04/2021 ATTENDING PHYSICIAN: Dr. Wolfe. CHIEF COMPLAINT: Nausea and elevated blood sugars. HISTORY OF PRESENT ILLNESS: The patient is a 36-year-old female with insulin-dependent diabetes. She states that it is type 2. She had abdominal pain, nausea, not eating for the last several days. Her blood sugars were high. It was 611 mg/dL with an anion gap of 31. She is admitted then with diabetic ketoacidosis. Insulin drip has been started in the ED. She had lab work done. Urine tox screen was negative. Urine shows lots of ketones. Bicarbonate level was 8. Sodium 130 mEq per liter with a gap of 31. Her hemoglobin is hemoconcentrated 18.5 grams, white count of 13,000. PAST MEDICAL HISTORY: Significant for dysfunctional uterine bleeding. She has had poor dental caries, questionable compliance is an issue. CURRENT MEDICATIONS: Reviewed. She was taking 40 units of Lantus and sliding scale regular. She was also taking p.r.n. Flexeril, p.r.n. Valium, hydrocodone p.r.n., ibuprofen, ketaconazole and prednisone p.r.n. ALLERGIES: SHE HAS ALLERGIES TO SULFA DRUGS. SOCIAL HISTORY: She is a nonsmoker, nondrinker. FAMILY HISTORY: Noncontributory. REVIEW OF SYSTEMS: Significant for the generalized weakness, no appetite. She has not had any COVID exposure. All other systems reviewed and turned to be negative. PHYSICAL EXAMINATION: GENERAL: When I saw her, this is a pleasant young female. VITAL SIGNS: Initial vital signs showed a blood pressure 145/96, pulse is 130 and regular. She was afebrile, oxygen saturation 99% on room air. HEENT: Head is without trauma. Pupils are reactive. Oropharynx is clear. Mucous membranes dry. NECK: Supple, no bruits. LUNGS: Good breath sounds. CARDIOVASCULAR: Showed tachycardia rhythm. No gallops. ABDOMEN: Soft. No guarding or rebound tenderness. Bowel sounds were hypoactive. EXTREMITIES: Show no cyanosis or edema. NEUROLOGIC: Focally intact. LABORATORY DATA: As noted. Anion gap is 31. ASSESSMENT: 1. This 36-year-old female has diabetic ketoacidosis. Whether she is a type 1 or type 2 diabetic, remains to be seen. She has features of both. 2. Dehydration. 3. Metabolic acidosis due to ketoacidosis. PLAN: 1. I saw her in the ED. They do not have the ER bed, but we are going to manage her in the ED until the bed opens up. 2. Insulin drip as ordered. 3. Serial chemistry. 4. Advance diet later when sugars are improved. JOSIE DR: Gabino TID: [id number] CC: KAYLIN CONTRERAS
[2021-08-04] MEDS ORDERED: HYDROcodone/APAP 7.5/325MG 1 TAB TABLET PO STA (12:15)
[2021-08-04] MEDS ORDERED: SUCRALFATE 1 GM TABLET. PO ONE (15:00)
[2021-08-04] MEDS ORDERED: FAMOTIDINE 20 MG/2 ML VIAL IVP ONE (15:00)
[2021-08-04 17:31] LABS: CALCIUM 8.4 mg/dL (8.5-10.1); CREATININE 0.9 mg/dL (0.6-1.0); GFR 70.8
[2021-08-04 17:43] LABS: POTASSIUM 3.7 mmol/L (3.5-5.1)
[2021-08-04] MEDS ORDERED: HYDROcodone/APAP 7.5/325MG 1 TAB TABLET ONE (18:36)
[2021-08-04] MEDS: POTASSIUM CHLORIDE 10MEQ 100 ML IV PRN ×3 (21:14→23:20)
[2021-08-04] MEDS ORDERED: IV RINGERS SOLUTION,LACTATED 1,000 ML IV ONE ×2 (22:00→23:00)
[2021-08-04] MEDS ORDERED: diphenhydrAMINE 50 MG/ML VIAL IVP ONE (23:00)
[2021-08-04] MEDS ORDERED: PROCHLORPERAZINE 10 MG/2 ML VIAL. IV ONE (23:00)
[2021-08-04] MEDS ORDERED: IV NORMAL SALINE 100ML 100 ML ONE (23:56)
[2021-08-05] MEDS: POTASSIUM CHLORIDE 10MEQ 100 ML IV PRN (00:05)
[2021-08-05 00:55] LABS: BGAS PH 7.28 (7.35-7.45)
[2021-08-05 04:28] LABS: BASO # 0.2 x10^3/uL (0.0-0.2); BASO % 1 % (0-3); EOS % 0 % (0-3); HEMATOCRIT 45.6 % (36.0-47.0); HEMOGLOBIN 15.7 g/dL (12.0-15.5); LYMPH # 3.5 x10^3/uL (1.0-4.8); LYMPH % 24 % (24-48); MEAN CORPUSCULAR HEMOGLOBIN 32 pg (25-35); MEAN CORPUSCULAR HGB CONC 34 g/dL (31-37); MEAN CORPUSCULAR VOLUME 94 fL (79-100); MONO # 0.8 x10^3/uL (0.0-1.1); MONO % 6 % (0-9); NEUT # 9.8 x10^3uL (1.8-7.7); NEUT % 68 % (31-73); PLATELET COUNT 322 x10^3/uL (140-400); RED BLOOD COUNT 4.85 x10^6/uL (3.50-5.40); RED CELL DISTRIBUTION WIDTH 13.1 % (11.5-14.5); WHITE BLOOD COUNT 14.3 x10^3/uL (4.0-11.0)
[2021-08-05 04:49] LABS: ALBUMIN 3.6 g/dL (3.4-5.0); ALBUMIN/GLOBULIN RATIO 0.9 (1.0-1.7); CALCIUM 8.7 mg/dL (8.5-10.1); CREATININE 0.8 mg/dL (0.6-1.0); GFR 81.2; POTASSIUM 3.7 mmol/L (3.5-5.1); TOTAL BILIRUBIN 0.6 mg/dL (0.2-1.0); TOTAL PROTEIN 7.5 g/dL (6.4-8.2)
--- NOTE | 2021-08-05 08:05 | EKG ---
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
[2021-08-05] MEDS ORDERED: INSULIN GLARGINE SYRINGE. SQ SCH (11:30)
[2021-08-05 11:54] VITALS: BP 115/67
--- NOTE | 2021-08-05 12:06 | DS ---
DATE OF DISCHARGE: 08/05/2021 ATTENDING PHYSICIAN: Dr. Wolfe. FINAL DISCHARGE DIAGNOSES: 1. A 36-year-old female with diabetic ketoacidosis. 2. Type 2 diabetes mellitus. 3. Dehydration, rehydrated. 4. Metabolic acidosis due to ketoacidosis. HISTORY AND PHYSICAL: The patient is a 36-year-old female with known diabetes. She was admitted through the ED with elevated blood sugars 611 mg/dL with an anion gap of 31. She had clear cut DKA. Her sodium was spuriously low at 130 due to hyperglycemia. I actually saw the patient in the ED and admitted her on the afternoon of 08/04/2021. There were no beds available. I made rounds again and I saw her on the morning of discharge, 08/05. PHYSICAL EXAMINATION: Please see the dictated note. PERTINENT LABORATORY AND X-RAY STUDIES: Admission hemoglobin was 15.7 mg/dL. It was 18.5 in a hemoconcentrated state, repeated was down to 15.7 g/dL, white count 14,000. Electrolytes showed much improvement in her blood sugars 611, 400 and eventually down to 139, 116, 122, 88 and 146 mg/dL. Her followup chemistries showed an improvement in her electrolytes and anion gap was down to 14. COURSE IN THE HOSPITAL: The patient technically was admitted to my service; however, there was a significant shortage of beds. She ended up spending the night in the ED room, she was started on an insulin drip with serial glucose stabilizer protocol and her sugars and bicarbonate improved. By the next day, sugars were down in the low 100s. She felt better clinically and her vital signs were quite stable. Her blood pressure when I saw her was up to 119/71, pulse is 100. She was afebrile and her oxygen saturation 98% on room air. Therefore, she did not want to go up to the hospital since she did not need to be in the ICU. I therefore discharged her from the ED. She will follow up with her PCP, Dr. Mendoza. Her insulin is going to be her 30 units of Lantus daily along with a sliding scale regular insulin prior to each meal. Her other home meds include clindamycin to be continued for her dental caries, hydrocodone p.r.n. and diazepam p.r.n. She was discharged then from the ED in stable condition with explicit drug and followup care. SY/NEE DR: Gabino TID: [id number] CC: KAYLIN MENDOZA
== END 2021-08-05 12:21 | disposition home or self-care (01) ==
LOC: ER 08:31
DX: E11.10 Type 2 diabetes mellitus with ketoacidosis without coma (principal); D72.829 Elevated white blood cell count, unspecified; E86.0 Dehydration; I10 Essential (primary) hypertension; G43.909 Migraine, unspecified, not intractable, without status migrainosus; F17.210 Nicotine dependence, cigarettes, uncomplicated; Z88.2 Allergy status to sulfonamides
CPT/HCPCS: 36415; 80048; 80053; 80307; 81001; 81025; 82803; 82947; 83605; 83690; 83735; 84100; 85025; 93005; 96361; 96365; 96366; 96368; 96372; 96375; 96376; 99291; G0480; J0780; J1200; J1815; J2405; J3475; J3480; J7030; J7120

== ENCOUNTER → 2021-10-18 | Outpatient (CLI) | payer OTHER | LOC: LAB 10:52 | PROVIDERS: ATTEND Physician Assistant | DX: L40.9 Psoriasis, unspecified (principal) | CPT/HCPCS: 86481 ==